=== PATIENT | female | born 1995 | race Caucasian/White ===

== ENCOUNTER 2018-12-21 08:01 | Emergency (ER) | payer BC ==
[2014-08-30 03:03] VITALS: Ht 157.5 cm; Wt 55.0 kg
[~2018-12-21] VITALS: Ht 157.5 cm; Wt 55.0 kg
[~2018-12-21 08:01] MED LIST: IBUPROFEN600 MG PO; PERCOCET 5-3251 TAB PO; PRENATAL COMPLE1 TAB PO
[2018-12-21 08:40] LABS: BASOPHILS 0.3 % (0-2); EOSINOPHILS 1.9 % (0-7); HEMATOCRIT 36.5 % (36.0-48.0); HEMOGLOBIN 12.7 g/dL (12-16); IMMATURE GRANULOCYTES 0.1 % (0-5); LYMPHOCYTES 23.6 % (15-50); MCH 29.9 pg (26.0-34.0); MCHC 34.8 g/dL (31.0-37.0); MCV 85.9 fL (80.0-100.0); MEAN PLATELET VOLUME 10.2 fL (7.4-10.4); MONOCYTES 8.9 % (2-11); NEUTROPHILS 65.2 % (40-80); RBC 4.25 10x6/uL (4.00-5.40); RDW 12.7 % (11.5-14.5); WBC 6.8 10x3/uL (4.8-10.8)
[2018-12-21 08:52] LABS: PLATELET COUNT 254 10x3/uL (130-400)
[2018-12-21 09:02] LABS: ALBUMIN 3.9 g/dL (3.4-5.0); ALKALINE PHOSPHATASE 67 U/L (46-116); ALT (SGPT) 74 U/L (10-68); CALC OSMOLALITY 274 mosm/kg (275-300); CALCIUM 8.6 mg/dL (8.5-10.1); CHLORIDE - SERUM 105 mmol/L (98-107); CREATININE - SERUM 0.5 mg/dL (0.6-1.3); GLUCOSE 89 mg/dL (74-106); POTASSIUM - SERUM 3.8 mmol/L (3.5-5.1); PROTEIN - SERUM 7.5 g/dL (6.4-8.2); SODIUM 139 mmol/L (136-145); UREA NITROGEN 8 mg/dL (7-18); eGFR NON AFRICAN AMERICAN > 90 mL/min (90-120)
[2018-12-21 09:09] LABS: APPEARANCE HAZY (CLEAR); COLOR YELLOW (YELLOW); GLUCOSE NEGATIVE (NEGATIVE); KETONE NEGATIVE (NEGATIVE); NITRITE NEGATIVE (NEGATIVE); PROTEIN NEGATIVE (NEGATIVE)
[2018-12-21 09:10] LABS: BACTERIA MANY /hpf (NONE SEEN); BILIRUBIN NEGATIVE (NEGATIVE); EPITHELIAL CELLS 0-5 /hpf (0-5); MUCUS <1+ /lpf (NONE SEEN); RED CELLS - URINE 0-5 /hpf (0-5); UROBILINOGEN NORMAL (NORMAL); WHITE CELLS - URINE 0-5 /hpf (0-5)
[2018-12-21 09:18] LABS: HCG - QUANTITATIVE (MATERNAL) 16955 mIU/mL
[2018-12-21] MEDS ORDERED: FLAGYL70 GM VG (10:48)
[2018-12-21 11:25] VITALS: BP 103/60
== END 2018-12-21 11:15 | disposition home or self-care (01) ==
LOC: D.ER 08:01
PROVIDERS: Family Medicine
DX: O20.0 Threatened abortion (principal); Z3A.01 Less than 8 weeks gestation of pregnancy; N76.0 Acute vaginitis

== ENCOUNTER 2018-12-24 13:27 | Emergency (ER) | payer BC ==
[2018-12-21 08:06] VITALS: BMI 22.2
[~2018-12-24 13:27] MED LIST changes: +FLAGYL70 GM VG
== END 2018-12-24 14:08 | disposition left against medical advice (07) ==
LOC: D.ER 13:27
DX: O26.891 Other specified pregnancy related conditions, first trimester (principal); Z3A.01 Less than 8 weeks gestation of pregnancy

== ENCOUNTER 2019-01-03 10:05 | Day surgery (SDC) | payer BC ==
[2019-01-02 13:52] LABS: BASOPHILS 0.2 % (0-2); EOSINOPHILS 1.4 % (0-7); HEMATOCRIT 39.6 % (36.0-48.0); HEMOGLOBIN 13.6 g/dL (12-16); IMMATURE GRANULOCYTES 0.3 % (0-5); LYMPHOCYTES 17.8 % (15-50); MCH 29.6 pg (26.0-34.0); MCHC 34.3 g/dL (31.0-37.0); MCV 86.1 fL (80.0-100.0); MEAN PLATELET VOLUME 10.2 fL (7.4-10.4); NEUTROPHILS 75.3 % (40-80); PLATELET COUNT 281 10x3/uL (130-400); RDW 12.6 % (11.5-14.5); WBC 10.6 10x3/uL (4.8-10.8)
[~2019-01-03] VITALS: Ht 160 cm; Wt 57.3 kg
[2019-01-03 10:23] VITALS: BP 112/59; Ht 160 cm; Wt 57.3 kg
--- NOTE | 2019-01-03 10:57 | NUR ---
DR. SHANNON NOTIFIED AND REVIEWED PT'S BEHAVIOR AND ASSESSMENT RESULTS. PT IS A LOW RISK PER DR. SHANNON. DR. SHANNON STATED TO GIVE RESOURCES TO PT AT TIME OF DISCHARGE. NO FURTHER ORDERS AT THIS TIME. RESOURCES REVIEWED WITH PT AND SHE VERBALIZED UNDERSTANDING.
--- NOTE | 2019-01-03 14:18 | NUR ---
1420 NOTIFIED RX FOR TORDOL ORDER.
--- NOTE | 2019-01-03 14:36 | NUR ---
1430 IV REMOVED AND PRESSURE HELD DRESSING APPLIED.
== END 2019-01-03 14:57 | disposition home or self-care (01) ==
LOC: D.OPS 10:05 → D.PAN 12:00 → D.OPS 14:57
PROVIDERS: ATTEND Student in an Organized Health Care Education/Training Program
DX: O03.4 Incomplete spontaneous abortion without complication (principal); Z01.812 Encounter for preprocedural laboratory examination

== ENCOUNTER 2019-06-11 11:41 | Outpatient (CLI) | payer BC ==
[~2019-06-11] VITALS: Ht 160 cm; Wt 54.5 kg
[2019-06-11 11:46] VITALS: Ht 160 cm; Wt 54.5 kg
[2019-06-11 12:24] LABS: BASOPHILS 0.3 % (0-2); EOSINOPHILS 2.6 % (0-7); HEMATOCRIT 38.7 % (36.0-48.0); HEMOGLOBIN 12.6 g/dL (12-16); LYMPHOCYTES 29.1 % (15-50); MCHC 32.6 g/dL (31.0-37.0); MEAN PLATELET VOLUME 9.9 fL (7.4-10.4); MONOCYTES 8.6 % (2-11); NEUTROPHILS 59.4 % (40-80); PLATELET COUNT 295 10x3/uL (130-400); RBC 4.35 10x6/uL (4.00-5.40); RDW 12.6 % (11.5-14.5)
[2019-06-11 12:25] LABS: APPEARANCE HAZY (CLEAR); COLOR YELLOW (YELLOW); SPECIFIC GRAVITY 1.015 (1.005-1.020)
[2019-06-11 12:26] LABS: BILIRUBIN NEGATIVE (NEGATIVE); GLUCOSE NEGATIVE (NEGATIVE); KETONE NEGATIVE (NEGATIVE); NITRITE NEGATIVE (NEGATIVE); PROTEIN NEGATIVE (NEGATIVE); UROBILINOGEN NORMAL (NORMAL)
[2019-06-11 12:27] LABS: BACTERIA FEW /hpf (NEGATIVE); RED CELLS - URINE 0-5 /hpf (0-5); WHITE CELLS - URINE 0-5 /hpf (NEGATIVE)
[2019-06-11 12:36] LABS: CALC OSMOLALITY 279 mosm/kg (275-300); CARBON DIOXIDE 29.4 mmol/L (21.0-32.0); CHLORIDE - SERUM 106 mmol/L (98-107); CREATININE - SERUM 0.7 mg/dL (0.6-1.3); GLUCOSE 97 mg/dL (74-106); POTASSIUM - SERUM 3.9 mmol/L (3.5-5.1); SODIUM 141 mmol/L (136-145); UREA NITROGEN 11 mg/dL (7-18); eGFR NON AFRICAN AMERICAN > 90 mL/min (90-120)
[2019-06-11 12:52] LABS: ALBUMIN 4.1 g/dL (3.4-5.0); ALKALINE PHOSPHATASE 85 U/L (46-116); ALT (SGPT) 80 U/L (10-68); BILIRUBIN - TOTAL 0.43 mg/dL (0.2-1.3); HCG - QUANTITATIVE (MATERNAL) 458 mIU/mL; PROTEIN - SERUM 7.6 g/dL (6.4-8.2)
[2019-06-11 19:03] VITALS: BP 106/85
--- NOTE | 2019-06-11 19:20 | NUR ---
DR. HORNE TO ROOM TO SPEAK WITH PT REGARDING PLAN OF CARE. DR. HORNE PERFORMS STERILE SPECULUM EXAM AND SVE. MD SPEAKING WITH PT REGARDING HX OF VAG BLEEDING, AND LAB RESULTS. MD REPORTS SVE CLOSED, WITH NO ACTIVE BLEEDING NOTED BY MD. WANTS U/S RESULTS, ALONG WITH BETA HCG RESULTS FROM [facility]. REPORT GIVEN TO Jackelin ORELLANA RN.
--- NOTE | 2019-06-11 21:10 | NUR ---
DR HORNE TO PATIENTS ROOM TO INFORM HER OF PLAN OF CARE.
[2019-06-12 06:42] LABS: BASOPHILS 0.3 % (0-2); EOSINOPHILS 2.8 % (0-7); HEMATOCRIT 35.2 % (36.0-48.0); HEMOGLOBIN 11.4 g/dL (12-16); IMMATURE GRANULOCYTES 0.2 % (0-5); LYMPHOCYTES 29.5 % (15-50); MCH 28.8 pg (26.0-34.0); MCHC 32.4 g/dL (31.0-37.0); MCV 88.9 fL (80.0-100.0); MEAN PLATELET VOLUME 9.7 fL (7.4-10.4); MONOCYTES 7.9 % (2-11); NEUTROPHILS 59.3 % (40-80); RBC 3.96 10x6/uL (4.00-5.40); RDW 12.6 % (11.5-14.5)
[2019-06-12 07:03] LABS: ALBUMIN 3.5 g/dL (3.4-5.0); ALKALINE PHOSPHATASE 90 U/L (46-116); BILIRUBIN - TOTAL 0.22 mg/dL (0.2-1.3); CALC OSMOLALITY 285 mosm/kg (275-300); CALCIUM 8.3 mg/dL (8.5-10.1); CARBON DIOXIDE 24.3 mmol/L (21.0-32.0); CHLORIDE - SERUM 110 mmol/L (98-107); CREATININE - SERUM 0.6 mg/dL (0.6-1.3); GLUCOSE 98 mg/dL (74-106); POTASSIUM - SERUM 4.4 mmol/L (3.5-5.1); PROTEIN - SERUM 6.5 g/dL (6.4-8.2); SODIUM 144 mmol/L (136-145); UREA NITROGEN 11 mg/dL (7-18); eGFR NON AFRICAN AMERICAN > 90 mL/min (90-120)
[2019-06-12 07:04] LABS: ALT (SGPT) 156 U/L (10-68)
[2019-06-12 07:11] LABS: PLATELET COUNT 235 10x3/uL (130-400)
== END 2019-06-12 10:18 | disposition home or self-care (01) ==
LOC: D.LDO 11:41 → D.ER 11:41 → EDSTATUS 19:20 → D.LDO 19:31 → D.LD 21:55 → D.LDO 06-12 10:18
PROVIDERS: Family Medicine; ATTEND Student in an Organized Health Care Education/Training Program
DX: O20.0 Threatened abortion (principal); Z3A.00 Weeks of gestation of pregnancy not specified

== ENCOUNTER 2019-10-16 08:48 | Emergency (ER) | payer BC ==
[~2019-10-16] VITALS: Ht 160 cm; Wt 54.5 kg
[2019-10-16 08:58] VITALS: Ht 160 cm; Wt 54.5 kg
[2019-10-16 09:21] LABS: BASOPHILS 0.5 % (0-2); HEMATOCRIT 39.5 % (36.0-48.0); HEMOGLOBIN 12.8 g/dL (12-16); IMMATURE GRANULOCYTES 0.2 % (0-5); LYMPHOCYTES 26.7 % (15-50); MCHC 32.4 g/dL (31.0-37.0); MCV 89.4 fL (80.0-100.0); MEAN PLATELET VOLUME 9.6 fL (7.4-10.4); MONOCYTES 5.7 % (2-11); NEUTROPHILS 64.9 % (40-80); RBC 4.42 10x6/uL (4.00-5.40); RDW 12.8 % (11.5-14.5); WBC 6.5 10x3/uL (4.8-10.8)
[2019-10-16 09:26] LABS: PLATELET COUNT 283 10x3/uL (130-400)
[2019-10-16 09:31] LABS: HCG SERUM POSITIVE (NEGATIVE)
[2019-10-16 09:32] LABS: CALC OSMOLALITY 274 mosm/kg (275-300); CALCIUM 8.8 mg/dL (8.5-10.1); CARBON DIOXIDE 25.4 mmol/L (21.0-32.0); CHLORIDE - SERUM 105 mmol/L (98-107); CREATININE - SERUM 0.5 mg/dL (0.6-1.3); GLUCOSE 92 mg/dL (74-106); SODIUM 138 mmol/L (136-145); UREA NITROGEN 11 mg/dL (7-18); eGFR NON AFRICAN AMERICAN > 90 mL/min (90-120)
[2019-10-16 09:41] LABS: BILIRUBIN NEGATIVE (NEGATIVE); GLUCOSE NEGATIVE (NEGATIVE); KETONE NEGATIVE (NEGATIVE); NITRITE NEGATIVE (NEGATIVE); SPECIFIC GRAVITY 1.005 (1.005-1.020); UROBILINOGEN NORMAL (NORMAL)
[2019-10-16 10:01] LABS: ALBUMIN 4.2 g/dL (3.4-5.0); ALKALINE PHOSPHATASE 68 U/L (30-120); ALT (SGPT) 75 U/L (10-68); HCG - QUANTITATIVE (MATERNAL) 11156 mIU/mL; PROTEIN - SERUM 7.5 g/dL (6.4-8.2)
[2019-10-16 10:41] VITALS: BP 110/71
== END 2019-10-16 12:32 | disposition home or self-care (01) ==
LOC: D.ER 08:48
PROVIDERS: Family Medicine
DX: O20.9 Hemorrhage in early pregnancy, unspecified (principal); Z3A.01 Less than 8 weeks gestation of pregnancy; R10.31 Right lower quadrant pain

== ENCOUNTER 2020-02-06 11:10 | Outpatient (CLI) | payer BC ==
[2019-10-16 08:58] VITALS: BMI 21.3
[2020-02-06 12:12] LABS: BILIRUBIN NEGATIVE (NEGATIVE); KETONE NEGATIVE (NEGATIVE); NITRITE NEGATIVE (NEGATIVE); UROBILINOGEN NORMAL (NORMAL)
[2020-02-06 12:13] LABS: AMORPHOUS SEDIMENT >1+ /lpf (NONE SEEN); BACTERIA FEW /hpf (NONE SEEN); EPITHELIAL CELLS 0-5 /hpf (0-5); WHITE CELLS - URINE NSEEN /hpf (0-5)
== END 2020-02-06 13:35 | disposition home or self-care (01) ==
LOC: D.LDO 11:10
PROVIDERS: ATTEND Obstetrics & Gynecology
DX: O26.899 Other specified pregnancy related conditions, unspecified trimester (principal); R10.9 Unspecified abdominal pain; M54.5 Low back pain

== ENCOUNTER 2020-07-25 08:00 | Day surgery (SDC) | payer BC, MEDICAID ==
[2020-07-22 11:26] LABS: BASOPHILS 0.6 % (0-2); EOSINOPHILS 2.4 % (0-7); HEMATOCRIT 40.3 % (36.0-48.0); HEMOGLOBIN 12.7 g/dL (12-16); IMMATURE GRANULOCYTES 0.1 % (0-5); LYMPHOCYTE ABS# 2.06 10x3/uL (1.18-3.74); LYMPHOCYTES 29.1 % (15-50); MCH 26.7 pg (26.0-34.0); MCHC 31.5 g/dL (31.0-37.0); MCV 84.8 fL (80.0-100.0); MEAN PLATELET VOLUME 10.4 fL (7.4-10.4); MONOCYTES 4.8 % (2-11); NEUTROPHIL ABS# 4.46 10x3/uL (1.56-6.13); RBC 4.75 10x6/uL (4.00-5.40); RDW 14.2 % (11.5-14.5); WBC 7.1 10x3/uL (4.8-10.8)
[2020-07-22 11:36] LABS: PLATELET COUNT 326 10x3/uL (130-400)
[2020-07-22 11:46] LABS: SARS-CoV-2 ANTIGEN NEGATIVE- SARS-COV-2 (NEGATIVE)
[~2020-07-25] VITALS: Ht 160 cm; Wt 59.1 kg
[~2020-07-25 08:00] MED LIST changes: +PHENERGAN25 M1 PO
[2020-07-25 08:19] VITALS: BP 113/68; Ht 160 cm; Wt 59.1 kg
[2020-07-25 08:21] LABS: HCG URINE NEGATIVE (NEGATIVE)
--- NOTE | 2020-07-25 14:11 | NUR ---
1240 IV REMOVED AND INSTRUCTIONS GIVEN, SMALL AMT OF VAG BLEEDING. PAD PROVIDED.
--- NOTE | 2020-08-01 16:43 | OP ---
PATIENT NAME: ANGELIQUE WISE MEDICAL RECORD: [id number] :95 [facility] DATE: SURGEON: DESTINY WESTON MD DATE OF OPERATION: 07/25/2020 PREOPERATIVE DIAGNOSES: 1. Multiparity, the patient desires permanent sterility. 2. Menorrhagia. POSTOPERATIVE DIAGNOSES: 1. Multiparity, the patient desires permanent sterility. 2. Menorrhagia. PROCEDURE: Laparoscopic tubal ligation via bipolar cautery, hysteroscopy and NovaSure endometrial ablation. SURGEON: Destiny Weston. ANESTHESIA: General endotracheal. INTRAVENOUS FLUIDS: Per anesthesia record. HYSTEROSCOPIC FLUID LOSS: Approximately 5 mL. FINDINGS: 1. Grossly normal-appearing fallopian tubes, ovaries and uterus. 2. Grossly normal-appearing endometrial cavity. SPECIMENS: None. COMPLICATIONS: None apparent. PROCEDURE IN DETAIL: The patient was taken to the operating room where general anesthesia was achieved without any difficulty. The patient was then prepped and draped in normal sterile fashion in the dorsal lithotomy position in the [facility]. The bladder was drained of approximately 100 mL of clear yellow urine and a sponge stick was placed into the vagina for uterine elevation. At this point, a 5-mm incision was made infraumbilically and the 5-mm bladeless trocar was used to enter the intraperitoneal space under direct visualization of the laparoscope. Introducer was removed and intraperitoneal placement was confirmed by the laparoscope. The patient was then fully insufflated and a second 5-mm incision was made in the midline approximately 4 cm superior to the pubic symphysis. A second 5-mm trocar was placed under direct visualization of the laparoscope. The bipolar cautery was used to completely desiccate approximately 5 to 6 cm portion of the mid fallopian tube bilaterally. This was performed with good hemostasis. The pressure was turned down and no bleeding was noted from any of the surgical sites. The patient was then fully desufflated and the 2 trocars were removed. The skin was repaired with a 2-0 Vicryl in an interrupted fashion. Attention was then turned to the vagina where the sponge stick was removed. The cervix was grasped on its anterior lip with a single tooth tenaculum. The patient was then dilated to approximately 5-mm at which point the hysteroscope was placed to survey the endometrial canal. The patient was then dilated to 9-mm and the NovaSure endometrial device was measured, calibrated and placed without resistance or difficulty into the intrauterine cavity. Both vacuum pre-checks were passed and OPERATIVE REPORT [id number] ANGELIQUE WISE the burn cycle was completed without difficulty. The NovaSure device was then removed using the bow and arrow method and the tenaculum removed with no bleeding noted from the cervical os at that time. The patient tolerated the procedure well and was transported to postanesthesia recovery stable without incident. TRANSINT:[id number] Voice Confirmation ID: [id number] DOCUMENT ID: [id number] DESTINY WESTON MD at 1643 CC: [id number] DICTATION DATE: 08/01/20 1055 TACK COVERER: 08/01/20 1214 [facility] 07/25/20 [id number] [place] [address]
== END 2020-07-25 13:10 | disposition home or self-care (01) ==
LOC: D.OPS 08:00
PROVIDERS: ATTEND Obstetrics & Gynecology
DX: Z30.2 Encounter for sterilization (principal); N92.0 Excessive and frequent menstruation with regular cycle